=== PATIENT | male | born 1940 | race Caucasian/White ===

== ENCOUNTER → 2016-11-11 | Outpatient (CLI) | payer MEDICARE ==
[~2016-11-11] MED LIST: ALFU10TA PO; ALPR0.5T6 PO; ASPI-496 PO; ATOR20TA PO; B12 IM; BUPR300T4 PO; CARV12.52 PO; ENAL20TA PO; FLUO20TA25 PO; FURO-93 PO; HYDR-3240 PO; OMEP40CA6 PO
== END | disposition home or self-care (01) ==
LOC: STAR 12:42
PROVIDERS: ATTEND Internal Medicine Cardiovascular Disease
DX: Z01.810 Encounter for preprocedural cardiovascular examination (principal); I48.92 Unspecified atrial flutter
CPT/HCPCS: 36415; 80053; 85025; 85610; 85730; 93005

== ENCOUNTER → 2016-11-11 | Outpatient (CLI) | payer MEDICARE ==
[~2016-11-11] MED LIST changes: +OMNIPAQUE 350 MG/ML, 150 ML BOTTLE ONE
== END | disposition home or self-care (01) ==
LOC: CFH 11:00
PROVIDERS: ATTEND Internal Medicine Cardiovascular Disease
DX: I51.7 Cardiomegaly (principal); I10 Essential (primary) hypertension; I48.92 Unspecified atrial flutter; Z95.820 Peripheral vascular angioplasty status with implants and grafts
CPT/HCPCS: 71020; 75572; 82565; Q9967

== ENCOUNTER 2016-11-16 06:20 | Inpatient (IN) | payer MEDICARE ==
[2016-11-11 13:30] VITALS: BP 149/89
[2016-11-11 14:13] LABS: ASPARTATE AMINO TRANSFERASE 23 U/L (15-37); BLOOD UREA NITROGEN 18 mg/dL (7-18)
[~2016-11-16] VITALS: Ht 177.8 cm; Wt 77.7 kg
[~2016-11-16 06:20] MED LIST changes: -OMNIPAQUE 350 MG/ML, 150 ML BOTTLE ONE
[2016-11-16] MEDS ORDERED: SODIUM CHLORIDE 0.9% 1,000 ML IV SCH ×2 (06:33→07:00)
[2016-11-16] MEDS ORDERED: FENTANYL PF 250 MCG/5ML ONE (07:17)
[2016-11-16] MEDS ORDERED: MIDAZOLAM 1 MG/ML, 5ML ONE (07:18)
[2016-11-16] MEDS ORDERED: ONDANSETRON 2MG/ML, 2ML ONE (08:05)
[2016-11-16] MEDS ORDERED: SUCCINYLCHOLINE 20 MG/ML, 10ML ONE (08:05)
[2016-11-16] MEDS ORDERED: PROPOFOL 10 MG/ML, 20ML ONE (08:05)
[2016-11-16] MEDS: ENALAPRIL 20MG TABLET PO SCH ×2 (09:00→20:58)
[2016-11-16] MEDS ORDERED: ZOLPIDEM 5MG TABLET PO PRN (09:00)
[2016-11-16] MEDS: BUPROPION SR 150 MG TABLET PO SCH (09:00)
[2016-11-16] MEDS: APIXABAN 5 MG TABLET PO SCH ×2 (09:00→21:03)
[2016-11-16] MEDS: FUROSEMIDE 20 MG TABLET PO SCH (09:00)
[2016-11-16] MEDS ORDERED: ACETAMINOPHEN 325 MG TABLET PO PRN (09:30)
[2016-11-16] MEDS ORDERED: EPHEDRINE 50 MG/ML, 1ML IVPush PRN (09:30)
[2016-11-16] MEDS ORDERED: ONDANSETRON 2MG/ML, 2ML IVPush PRN (09:30)
[2016-11-16] MEDS ORDERED: OXYcodone 5 MG/5 ML ORAL.SOL UDC PO PRN (09:30)
[2016-11-16] MEDS ORDERED: HYDROmorphone 1 MG/ML, 1ML IV PRN (09:30)
[2016-11-16] MEDS ORDERED: FENTANYL PF 100 MCG/2ML IV PRN (09:30)
[2016-11-16] MEDS ORDERED: MIDAZOLAM 1 MG/ML, 2ML IV PRN (09:30)
[2016-11-16 10:30] VITALS: BP 149/86
[2016-11-16] MEDS: TAMSULOSIN 0.4 MG CAP.ER.24H PO SCH (10:38)
[2016-11-16] MEDS: SOTALOL 80MG TABLET PO SCH ×2 (11:23→20:58)
[2016-11-16] MEDS: ASPIRIN 81 MG TABLET EC PO SCH (11:23)
[2016-11-16 14:07] VITALS: BP 131/81
[2016-11-16 20:08] VITALS: BP 153/81
[2016-11-16] MEDS: HYDROcodone/APAP 5/325 TABLET PO PRN (20:57)
[2016-11-16] MEDS: FLUOXETINE 20 MG CAPSULE PO SCH (20:58)
[2016-11-16] MEDS: ATORVASTATIN 20 MG TABLET PO SCH (20:58)
[2016-11-16] MEDS: OMEPRAZOLE 20 MG CAPSULE.DR PO SCH (20:58)
[2016-11-17 01:21] VITALS: BP 155/84
[2016-11-17] MEDS: SOTALOL 80MG TABLET PO SCH (05:11)
[2016-11-17 07:30] VITALS: BP 151/80
[2016-11-17] MEDS ORDERED: APIX5TAB PO (08:42)
[2016-11-17] MEDS ORDERED: SOTA80TA18 PO (08:42)
[2016-11-17] MEDS: ENALAPRIL 20MG TABLET PO SCH ×2 (09:17→21:59)
[2016-11-17] MEDS: BUPROPION SR 150 MG TABLET PO SCH (09:17)
[2016-11-17] MEDS: FLUOXETINE 20 MG CAPSULE PO SCH (09:18)
[2016-11-17] MEDS: TAMSULOSIN 0.4 MG CAP.ER.24H PO SCH (09:18)
[2016-11-17] MEDS: OMEPRAZOLE 20 MG CAPSULE.DR PO SCH (09:18)
[2016-11-17] MEDS: APIXABAN 5 MG TABLET PO SCH ×2 (09:18→21:59)
[2016-11-17] MEDS: ASPIRIN 81 MG TABLET EC PO SCH (09:18)
[2016-11-17] MEDS: FUROSEMIDE 20 MG TABLET PO SCH (09:18)
[2016-11-17 13:15] VITALS: BP 137/71
[2016-11-17] MEDS: SOTALOL 120MG TABLET PO SCH (18:02)
[2016-11-17 20:21] VITALS: BP 146/70
[2016-11-17] MEDS: ATORVASTATIN 20 MG TABLET PO SCH (21:59)
[2016-11-18 02:40] VITALS: BP 171/79
[2016-11-18] MEDS: HYDROcodone/APAP 5/325 TABLET PO PRN (03:15)
[2016-11-18 05:00] VITALS: BP 149/73
[2016-11-18] MEDS: SOTALOL 120MG TABLET PO SCH (06:25)
[2016-11-18 07:00] VITALS: BP 137/67
[2016-11-18] MEDS ORDERED: SOTA120T26 PO (07:28)
== END 2016-11-18 08:57 | disposition home or self-care (01) | DRG 303 ==
LOC: CACL 06:20 → ORIP 08:44 → 5SO 10:13
PROVIDERS: ADMIT Internal Medicine Cardiovascular Disease; ATTEND Internal Medicine Cardiovascular Disease
PROC: B246ZZ4 Ultrasonography of Right and Left Heart, Transesophageal (ICD-10-PCS; principal; 2016-11-16 08:00)
DX: I51.3 Intracardiac thrombosis, not elsewhere classified (principal); I48.92 Unspecified atrial flutter; E78.5 Hyperlipidemia, unspecified; F32.9 Major depressive disorder, single episode, unspecified; F41.9 Anxiety disorder, unspecified; I10 Essential (primary) hypertension; I48.0 Paroxysmal atrial fibrillation; I73.9 Peripheral vascular disease, unspecified; Z86.79 Personal history of other diseases of the circulatory system; Z87.891 Personal history of nicotine dependence
CPT/HCPCS: 36415; 80053; 85025; 85610; 85730; 93005; 93312; 93321; 93325; 93656; J2250; J2405; J2704; J3010; J0330

== ENCOUNTER → 2018-12-26 | Outpatient (CLI) | payer MEDICARE ==
[~2018-12-26] MED LIST changes: +APIX5TAB PO; +SOTA120T26 PO; +SOTA80TA18 PO
== END | disposition home or self-care (01) ==
LOC: CVU 14:48
PROVIDERS: ATTEND Physician Assistant
DX: I08.2 Rheumatic disorders of both aortic and tricuspid valves (principal); I48.92 Unspecified atrial flutter
CPT/HCPCS: 0399T; 93306; 93970

== ENCOUNTER → 2020-01-10 | Outpatient (CLI) | payer MEDICARE ==
[~2020-01-10] MED LIST changes: -BUPR300T4 PO; +BUPR300T94 PO; +OMEP40CA42 PO; -OMEP40CA6 PO
== END | disposition home or self-care (01) ==
LOC: CFH 10:07
PROVIDERS: ATTEND Internal Medicine Cardiovascular Disease
DX: I48.92 Unspecified atrial flutter (principal); I10 Essential (primary) hypertension; N28.9 Disorder of kidney and ureter, unspecified; Q23.1 Congenital insufficiency of aortic valve; Z95.820 Peripheral vascular angioplasty status with implants and grafts
CPT/HCPCS: 71046

== ENCOUNTER 2020-01-19 08:05 | Day surgery (SDC) | payer MEDICARE ==
[~2020-01-19] VITALS: Ht 175.3 cm; Wt 88.6 kg
[2020-01-19] MEDS ORDERED: SODIUM CHLORIDE 0.9% 500 ML IV PRN (08:20)
[2020-01-19 08:49] VITALS: BP 117/69
[2020-01-19] MEDS ORDERED: SOTA80TA PO (09:01)
[2020-01-19 09:02] LABS: BASOPHILS # (AUTO) 0.03 x10^3/uL (0-0.1); BASOPHILS % (AUTO) 0 % (0-1); EOSINOPHILS # (AUTO) 0.59 x10^3/uL (0-0.4); EOSINOPHILS % (AUTO) 8 % (1-7); LYMPHOCYTES # (AUTO) 1.52 x10^3/uL (1-3.4); LYMPHOCYTES % (AUTO) 19 % (22-44); MD NO; MEAN CORPUSCULAR HEMOGLOBIN 32.5 pg (27.5-34.5); MEAN CORPUSCULAR HGB CONC 32.4 g/dL (33.2-36.2); MEAN CORPUSCULAR VOLUME 100.5 fL (81-97); MEAN PLATELET VOLUME 7.8 fL (7.4-10.4); MONOCYTES # (AUTO) 0.81 x10^3/uL (0.2-0.8); MONOCYTES % (AUTO) 10 % (2-9); NEUTROPHILS % (AUTO) 63 % (42-75); PLATELET COUNT 292 x10^3/uL (130-400); RED BLOOD COUNT 4.15 x10^6/uL (4.38-5.82); RED CELL DISTRIBUTION WIDTH 17.4 % (9.4-14.8)
[2020-01-19] MEDS ORDERED: FURO20TA3 PO (09:03)
[2020-01-19] MEDS ORDERED: ENAL10TA PO (09:03)
[2020-01-19 09:59] LABS: ANION GAP 5 mmol/L (5-15); CALCIUM 8.5 mg/dL (8.5-10.1); CHLORIDE 104 mmol/L (98-107); CREATININE 1.87 mg/dL (0.7-1.3)
[2020-01-19] MEDS ORDERED: PROPOFOL 10 MG/ML, 20ML ONE (10:13)
== END 2020-01-19 11:33 | disposition home or self-care (01) ==
LOC: CACL 08:05
PROVIDERS: ATTEND Internal Medicine Cardiovascular Disease
DX: I48.92 Unspecified atrial flutter (principal); Q23.1 Congenital insufficiency of aortic valve; I10 Essential (primary) hypertension; N28.9 Disorder of kidney and ureter, unspecified; Z79.01 Long term (current) use of anticoagulants; Z79.899 Other long term (current) drug therapy; Z88.5 Allergy status to narcotic agent; Z88.8 Allergy status to other drugs, medicaments and biological substances; Z95.820 Peripheral vascular angioplasty status with implants and grafts
CPT/HCPCS: 36415; 80048; 85025; 92960; J2704

== ENCOUNTER 2020-09-26 08:00 | Outpatient (CLI) | payer MEDICARE ==
[~2020-09-26 08:00] MED LIST changes: -ALPR0.5T6 PO; +ALPR0.5T93 PO; +ENAL10TA9 PO; -ENAL20TA PO; +ENAL20TA9 PO; +FURO20TA3 PO; +HYDR-1067 PO; -HYDR-3240 PO; +SOTA80TA PO
== END 2020-09-26 23:59 | disposition home or self-care (01) ==
LOC: STAR 08:00
PROVIDERS: ATTEND Internal Medicine Cardiovascular Disease
DX: Z20.822 Contact with and (suspected) exposure to COVID-19 (principal)
CPT/HCPCS: U0003

== ENCOUNTER 2020-10-01 05:56 | Observation (INO) | payer MEDICARE ==
[~2020-10-01] VITALS: Ht 157.5 cm; Wt 78.3 kg
[2020-10-01 06:25] VITALS: BP 124/79
[2020-10-01] MEDS ORDERED: SODIUM CHLORIDE 0.9% 1,000 ML IV SCH ×2 (06:30)
[2020-10-01] MEDS ORDERED: ALFU10TA PO (06:32)
[2020-10-01 06:53] LABS: BASOPHILS % (AUTO) 1 % (0-1); EOSINOPHILS % (AUTO) 9 % (1-7); LYMPHOCYTES % (AUTO) 22 % (22-44); MD NO; MEAN CORPUSCULAR HEMOGLOBIN 34.5 pg (27.5-34.5); MEAN CORPUSCULAR HGB CONC 33.8 g/dL (33.2-36.2); MEAN PLATELET VOLUME 7.5 fL (7.4-10.4); MONOCYTES % (AUTO) 10 % (2-9); NEUTROPHILS % (AUTO) 58 % (42-75); PLATELET COUNT 265 x10^3/uL (130-400); RED BLOOD COUNT 3.96 x10^6/uL (4.38-5.82); RED CELL DISTRIBUTION WIDTH 15.2 % (9.4-14.8)
[2020-10-01 07:05] LABS: ANION GAP 4 mmol/L (5-15); CHLORIDE 105 mmol/L (98-107); CREATININE 1.68 mg/dL (0.7-1.3)
[2020-10-01] MEDS ORDERED: LIDOCAINE 1%, 20ML ONE (07:18)
[2020-10-01] MEDS ORDERED: PROPOFOL 50 ML ONE (07:41)
[2020-10-01] MEDS ORDERED: FENTANYL PF 250 MCG/5ML ONE (07:42)
[2020-10-01] MEDS ORDERED: MIDAZOLAM 1 MG/ML, 2ML ONE (07:42)
[2020-10-01] MEDS ORDERED: VASOPRESSIN 20 UNIT/ML, 1ML ONE (08:33)
[2020-10-01] MEDS ORDERED: ROCURONIUM 10MG/ML,5ML ONE (08:58)
[2020-10-01] MEDS ORDERED: ONDANSETRON 2MG/ML, 2ML ONE (08:58)
[2020-10-01] MEDS ORDERED: SUCCINYLCHOLINE 20 MG/ML, 10ML ONE (08:58)
[2020-10-01] MEDS ORDERED: PHENYLEPHRINE 10 MG/ML ONE ×2 (09:56)
[2020-10-01] MEDS ORDERED: APIXABAN 5 MG TABLET PO SCH (10:30)
[2020-10-01] MEDS ORDERED: APIXABAN 5 MG TABLET ONE (10:57)
[2020-10-01] MEDS ORDERED: EPHEDRINE 50 MG/ML, 1ML IVPush PRN (11:00)
[2020-10-01] MEDS ORDERED: OXYcodone 5 MG/5 ML ORAL.SOL UDC PO PRN (11:00)
[2020-10-01] MEDS ORDERED: METOPROLOL 1 MG/ML, 5ML IV PRN (11:00)
[2020-10-01] MEDS ORDERED: DIPHENHYDRAMINE 50 MG/ML, 1ML IVPush PRN (11:00)
[2020-10-01] MEDS ORDERED: ONDANSETRON 2MG/ML, 2ML IVPush PRN (11:00)
[2020-10-01] MEDS ORDERED: PROMETHAZINE 25 MG/ML, 1ML IVPush PRN (11:00)
[2020-10-01] MEDS ORDERED: EPHEDRINE 50 MG/ML, 1ML IM PRN (11:00)
[2020-10-01] MEDS ORDERED: HYDROmorphone 1 MG/ML, 1ML INJ IVPush PRN (11:00)
[2020-10-01] MEDS ORDERED: DIAZEPAM 5 MG/ML, 2ML IVPush PRN (11:00)
[2020-10-01] MEDS ORDERED: ACETAMINOPHEN 325 MG TABLET PO PRN (11:00)
[2020-10-01] MEDS ORDERED: hydrALAzine 20 MG/ML, 1ML IV PRN (11:00)
[2020-10-01] MEDS ORDERED: FENTANYL PF 100 MCG/2ML IV PRN (11:00)
[2020-10-01 11:32] VITALS: BP 131/68
[2020-10-01 12:52] VITALS: BP 91/60
[2020-10-01] MEDS ORDERED: SODIUM CHLORIDE 0.9%, 500ML IVBOLUS ONE (14:00)
[2020-10-01] MEDS ORDERED: ACETAMINOPHEN 500 MG TABLET PO PRN (16:30)
[2020-10-01 19:53] VITALS: BP 93/59
[2020-10-01] MEDS ORDERED: ATORVASTATIN 20 MG TABLET PO SCH (21:00)
[2020-10-01] MEDS: ENALAPRIL 10 MG TABLET PO SCH (21:15)
[2020-10-01] MEDS: APIXABAN 5 MG TABLET PO SCH (21:15)
[2020-10-01] MEDS: SOTALOL 80MG TABLET PO SCH (21:15)
[2020-10-01 23:03] VITALS: BP 111/71
[2020-10-02 04:37] VITALS: BP 88/56
[2020-10-02] MEDS ORDERED: OMEPRAZOLE 20 MG CAPSULE.DR PO SCH (06:30)
[2020-10-02 07:36] VITALS: BP 103/66
[2020-10-02] MEDS ORDERED: FUROSEMIDE 20 MG TABLET PO SCH (09:00)
[2020-10-02] MEDS ORDERED: TEMPLATE NON-FORMULARY MED. (Alfuzosin Hcl** (Uroxatral**) 10 MG) PO SCH ×2 (09:00)
[2020-10-02] MEDS: ENALAPRIL 10 MG TABLET PO SCH (09:00)
[2020-10-02] MEDS ORDERED: FLUOXETINE HCL 20 MG CAPSULE PO SCH (09:00)
[2020-10-02] MEDS ORDERED: TEMPLATE NON-FORMULARY MED. (Bupropion Hcl** (Bupropion Xl**) 300 MG) PO SCH (09:00)
[2020-10-02] MEDS: SOTALOL 80MG TABLET PO SCH (09:00)
[2020-10-02] MEDS: APIXABAN 5 MG TABLET PO SCH (09:01)
[2020-10-02 10:47] VITALS: BP 102/54
== END 2020-10-02 12:27 | disposition home or self-care (01) ==
LOC: CACL 05:56 → ORIP 10:17 → 5SO 12:13
PROVIDERS: ADMIT Internal Medicine Cardiovascular Disease; ATTEND Internal Medicine Cardiovascular Disease
DX: I48.4 Atypical atrial flutter (principal); Z20.822 Contact with and (suspected) exposure to COVID-19; I48.91 Unspecified atrial fibrillation; I10 Essential (primary) hypertension; Z79.01 Long term (current) use of anticoagulants; Z79.899 Other long term (current) drug therapy
CPT/HCPCS: 36415; 71046; 76937; 80048; 85025; 85347; 93306; 93312; 93321; 93325; 93462; 93613; 93621; 93653; 93655; 93662; C1730; C1732; C1766; C1893; C1894; G0378; J0330; J2250; J2370; J2405; J2704; J3010; J3490; J7040; U0003